=== PATIENT | male | born 1990 | race Caucasian/White ===

== ENCOUNTER → 2019-02-18 | Outpatient (CLI) | payer BC, OTHER ==
--- NOTE | 2019-03-04 00:11 | MCT ---
[facility] [place] [address] METHACHOLINE CHALLENGE TEST Name: ELSI DORANTES Room #: [facility] Ana#: [id number] Admission: 02/18/19 Attend Phys: Jassi Nguyen MD Discharge: Date of : 89 Report #: [id number] THIS REPORT FOR: //name// COPIES FOR: AGE: 28 SEX/RACE: M/C Height: in Exam Date: Weight: lbs BTPS: X >> PRE BRONCHODILATOR: PREDICTED BEST %PRED FORCED VITAL CAPACITY (FRC) L LPM % FORCED EXP VOL/SEC (FEV1) L FEV/FVC % MAX MID-EXP FLOW (FEF 25-75) L/SEC L/SEC % PEAK EXP FLOW RATE (FEF MAX) L/MIN L/MIN MED-VC RATIO (FEF 50/FEF 50) .09 Baseline: Phenol Saline Level 1: 0.025 mg/ml BEST %PRED %CHANGE BEST %PRED %CHANGE FVC 7.15 L 142 % % FVC 7.14 L 142 % 1 % FEV1 5.72 L 140 % % FEV1 5.80 L 142 % -1 % Level 2: 0.25 mg/ml Level 3: 2.5 mg/ml BEST %PRED %CHANGE BEST %PRED %CHANGE FVC 7.02 L 14 % 0 % FVC 6.96 L 139 % -1 % FEV1 5.50 L 135 % -7 % FEV1 5.36 L 132 % -9 % . Level 4: 10 mg/ml Level 5: 25 mg/ml BEST %PRED %CHANGE BEST %PRED %CHANGE FVC 6.82 L 136 % -3 % FVC 6.69 L 133 % -5 % FEV1 5.60 L 138 % -5 % FEV1 5.43 L 133 % -8 % Post Bronchodilator: 1st Treatment Post Bronchodilator: 2nd Treatment BEST %PRED %CHANGE BEST %PRED %CHANGE FVC 6.45 L 128 % -8 % FVC L % % FEV1 5.20 L 128 % -12 % FEV1 L % % Post Bronchodilator: 3rd Treatment BEST %PRED %CHANGE FVC L % % [facility] [address] [place] [address] METHACHOLINE CHALLENGE TEST Name: JAYNAELSI Seun Room #: [facility]#: [id number] Admission: 02/18/19 Attend Phys: Jassi Nguyen MD Discharge: Date of : 89 Report #: [id number] FEV1 L % % >> INTERPRETATION: CC: Alvina Nguyen DATE OF SERVICE: 02/18/2019 METHACHOLINE CHALLENGE TEST Methacholine challenge test was completed in normal routine fashion. Baseline FEV1 is 4.07 liters (with increasing doses of methacholine, there was minimal decline of his FEV1 or FVC). IMPRESSION: Negative methacholine challenge testing. <ELECTRONICALLY SIGNED> By: Sylvester Fair MD 03/04/19 0011 Sylvester Fair MD /[email or web address]
== END ==
LOC: PUL 09:42
DX: R05 Cough (principal)